=== PATIENT | female | born 1970 | race Caucasian/White ===

== ENCOUNTER 2024-03-12 12:00 | Emergency (ER) | payer MEDICARE, SELFPAY ==
--- NOTE | ~2024-03-12 | CT_ITS ---
EXAMINATION: CT CERVICAL SPINE WITHOUT CONTRAST CLINICAL INFORMATION: Acute on chronic neck pain. COMPARISON: None available. TECHNIQUE: Noncontrast computed tomography of the cervical spine was performed. This CT examination was performed using dose optimization techniques as appropriate, variously including the following: *Automated exposure control *Adjustment of mA and/or kV according to patient size (this includes techniques or standardized protocols for targeted exams where dose is matched to indication/reason for exam; i.e. extremities or head) *Use of iterative reconstruction technique DLP: 865 mGy-cm FINDINGS: The vertebral bodies and posterior elements demonstrate anatomic alignment. The neck is flexed. Vertebral body heights are preserved. There is mild degenerative disc disease at C5-6 and C6-7. There is no acute fracture. The atlantooccipital and C1/C2 articulations are intact. The prevertebral soft tissue is normal in appearance. Paraspinal soft tissue is normal in appearance. There is multilevel facet arthropathy. The thyroid gland is normal in appearance. The visualized lung apices are clear. CT/CT cervical spine wo IV con IMPRESSION: No acute osseous cervical spine abnormality. Mild cervical spondylosis as described. Fleischner guidelines were followed. Electronically signed by: Alfredo Nuñez DO 03/12/2024 03:01 PM EDT
--- NOTE | ~2024-03-12 | CT_ITS ---
EXAMINATION: CT HEAD WITHOUT CONTRAST CLINICAL INFORMATION: Headache. Hypertension. COMPARISON: None available. TECHNIQUE: Contiguous axial imaging was performed from the skull base to vertex without intravenous administration of contrast. This CT examination was performed using dose optimization techniques as appropriate, variously including the following: *Automated exposure control *Adjustment of mA and/or kV according to patient size (this includes techniques or standardized protocols for targeted exams where dose is matched to indication/reason for exam; i.e. extremities or head) *Use of iterative reconstruction technique DLP: 595 mGy-cm FINDINGS: There is no acute intracranial hemorrhage. There is no evidence of acute/subacute cerebral or cerebellar infarction. There is no midline shift or mass effect. There is no extra-axial fluid collection. The ventricles are normal in size. The orbits are symmetric and within normal limits. The visualized paranasal sinuses are clear. Mastoid air cells are clear. CT/CT head/brain wo IV con IMPRESSION: No acute intracranial abnormality. Electronically signed by: Alfredo Nuñez DO 03/12/2024 02:49 PM EDT
[2024-03-12 12:04] VITALS: BP 142/92; BP 154/97; PULSE 90; PULSE 96; RESP 18; TEMP 37; O2SAT 95; O2SAT 98; BMI 27.2
--- NOTE | 2024-03-12 12:12 | ED.GENADULT ---
HPI - General Adult General Chief complaint: Headache Stated complaint: MIGRAINE X2D,DIZZY,BLURRED VISION PER EMS Source: patient, EMS and RN notes reviewed Mode of arrival: EMS Limitations: no limitations History of Present Illness ED Provider: rosalee HPI narrative: Patient is a 54-year-old female with history of frequent, poorly controlled migraines presenting to the emergency department with complaint of migraine and high blood pressure readings at home. States she developed migraine Saturday night, also noted BP to be 160s/100s at that time. Presented to [facility] ED, medicated with Solu-medrol, droperidol, and Dilaudid at that time with good relief of symptoms. Was told to come back to the ED if symptoms returned. Symptoms returned yesterday, BP was again 160s/100s, so she returned to [facility]. Reports being in waiting room for 5+ hours, was seen and told to take Tylenol or ibuprofen and discharged home. She called the on-call for her PCP and was advised to return to an ED. She denies history of HTN, is not currently on blood pressure medications. Was previously on Sumatriptan for migraines but has been off x 3 months due to insurance issues. Reports associated blurred vision, nausea without vomiting, photophobia. States that she takes oxycodone for chronic neck pain but feels she has had an acute exacerbation of this chronic pain. Denies any weakness, numbness, tingling to upper extremities. Denies recent falls or other trauma. Had appointment scheduled with PCP for this afternoon to address blood pressures. MD complaint: migraine, htn Onset (ago): day(s) Location: head and neck Severity: severe Pain Consistency: colicky Relieving factors: medication Related Data Allergies Allergy/AdvReac Type Severity Reaction Status Date / Time codeine AdvReac Anxiety Verified 03/12/24 12:10 diphenhydramine AdvReac Anxiety Verified 03/12/24 12:10 [From Benadryl] hydrocodone AdvReac Anxiety Verified 03/12/24 12:10 morphine AdvReac Anxiety Verified 03/12/24 12:10 prochlorperazine AdvReac Anxiety Verified 03/12/24 12:10 [From Compazine] Review of Systems Review of Systems: As per HPI Yes all other systems are reviewed and are negative Constitutional: Constitutional: Reports as per HPI PMFSH Social History Social History Smoked in Last 30 Days: No Advance Directives: No Advance Directives Information Provided: Yes Do you have a plan to hurt others: No Plan Patient : No Physical Exam ED Vital Signs: Vital Signs - 24 hr 03/12/24 12:04 03/12/24 12:16 03/12/24 13:56 Temperature 98.6 F 98.6 F 97.7 F Pulse Rate 96 96 54 Respiratory Rate 18 18 14 Blood Pressure 154/97 H 154/97 H 125/76 Pulse Oximetry 95 95 97 Oxygen Delivery Method Room Air Room Air Room Air 03/12/24 16:19 03/12/24 17:51 03/12/24 18:48 Temperature 97.8 F 97.8 F 97.8 F Pulse Rate 66 64 64 Respiratory Rate 18 15 15 Blood Pressure 167/85 H 147/78 H 147/78 H Pulse Oximetry 99 94 94 Oxygen Delivery Method Room Air Room Air Room Air BMI result Body Mass Index 27.2 Vital signs have been reviewed and appear to be correct. Blood pressure elevated. Heart rate normal. Respiratory rate normal. Temperature normal. Oxygen saturation normal. Const General: cooperative, healthy appearing and no acute distress Orientation/consciousness: oriented to person, oriented to place, oriented to time and patient oriented x3 Limitations: no limitations HENMT Head: Yes normocephalic and Yes atraumatic Ears: external ears normal General nose exam: Normal external nose present Face and sinus: Yes face symmetric Mouth: oropharynx normal and moist mucous membranes Throat: Yes uvula midline Eyes Pupils: Equal, round and reactive pupils present Neck Neck: Yes normal visual inspection, Yes no meningeal signs and Yes supple Resp Effort & Inspection: normal respiratory effort and able to speak in complete sentences Auscultation: clear to auscultation bilaterally Cardio Rate: regular rate Rhythm: regular rhythm Heart sounds: S1 normal heart sound present and S2 normal heart sound present GI Palpation (GI): Soft to palpation and nontender Auscultation: normoactive bowel sounds General: Yes no CVA tenderness Back/Spine/Pelvis Back: no CVA tenderness Skin General skin exam: elasticity normal and turgor normal Neuro General: oriented to person, oriented to place, oriented to time, patient oriented x3, tone normal, moves all extremities, Normal light touch and pain sensation, no meningeal signs, no focal motor deficits, CN's II-XI intact bilaterally and deep tendon reflexes 2+ bilaterally Cranial nerves: Yes Equal, round and reactive pupils present Cognition (Neuro): normal cognition Motor exam (neuro): 5/5 motor strength present throughout Extrem General: Yes full ROM, Yes no pedal edema and Yes no calf tenderness Psych Mental Status: mental status grossly normal Affect: normal affect Thought process: Normal thought process present Medications Administered Discontinued Medications Generic Name Dose Route Start Last Admin Trade Name Freq PRN Reason Stop Dose Admin Droperidol 0.625 mg 03/12/24 12:31 03/12/24 12:57 Droperidol 5 Mg/2 Ml Vial IVPUSH 03/12/24 12:32 0.625 mg ONCE ONE Administration Hydromorphone HCl 1 mg 03/12/24 12:31 03/12/24 12:57 Hydromorphone Hcl 1 Mg/Ml Syringe IVPUSH 03/12/24 12:32 1 mg ONCE ONE Administration Protocol Hydromorphone HCl 1 mg 03/12/24 17:08 03/12/24 17:44 Hydromorphone Hcl 1 Mg/Ml Syringe IVPUSH 03/12/24 17:09 1 mg ONCE ONE Administration Protocol Sodium Chloride 1,000 mls @ 999 mls/hr 03/12/24 12:45 03/12/24 13:59 Ns IV 03/12/24 13:45 Infused .Q1H1M THOMAS Infusion Sodium Chloride 1,000 mls @ 999 mls/hr 03/12/24 17:15 03/12/24 17:44 Ns IV 03/12/24 18:15 999 mls/hr .Q1H1M THOMAS Administration Methylprednisolone Sodium Succinate 60 mg 03/12/24 12:31 03/12/24 12:58 Methylprednisolone Sod Succ 125 Mg/2 Ml Vial IVPUSH 03/12/24 12:32 60 mg ONCE ONE Administration Medical Decision Making Medical Decision Making MDM Narrative: Patient is a 54-year-old female with history of frequent, poorly controlled migraines presenting to the emergency department with complaint of migraine and high blood pressure readings at home. On exam patient is awake, A+Ox3, VS WNL, afebrile, normal neurological exam without focal deficits, physical exam findings as above. Given reported symptoms and physical exam findings, initial differential includes migraine, uncontrolled hypertension, tension headache. No red flag findings concerning for ICH/SAH, acute glaucoma, carotid artery dissection, CO poisoning, encephalitis, meningitis, preeclampsia, pseudotumor, temporal arteritis/giant cell arteritis. Given ongoing headaches with hypertension and worsening neck pain, CT head and neck obtained. Labs unremarkable, no significant electrolyte abnormalities. CT head notable for no acute abnormality, CT C-spine notable for mild spondylosis. My interpretation is in agreement with the radiologist's interpretation. Headache improved with medications and fluids given in the emergency department. Patient states that she feels able to be discharged home. Instructed patient to follow up with PCP regarding hypertension. Return precautions discussed at bedside. Patient verbalized understanding of and agreement with plan. Differential Diagnosis Differential Diagnoses: The differential diagnosis associated with the presentation includes As per [facility]. Admission/Observation Consideration of admission/observation: Escalation of care including admission/observation considered Patient would have been admitted to the hospital had their work up had any findings where hospital admission was appropriate and their clinical presentation warranted hospital admission. Lab Data [facility] Lab Attestation statement: I reviewed the patient's lab results. As per MDM. 03/12/24 12:44 03/12/24 12:44 Labs: Lab Results 03/12/24 Range/Units 12:44 WBC 5.4 (4.8-10.8) X10*3/uL RBC 4.61 (4.20-5.50) X10*6/uL Hgb 13.8 (12.0-16.0) g/dl Hct 40.0 (37.0-47.0) % MCV 86.8 (80.0-98.0) fL MCH 29.9 (27.0-33.0) pg MCHC 34.5 (31.0-35.0) g/dl RDW 13.4 (11.0-16.0) % Plt Count 238 (160-400) X10*3/uL MPV 10.4 (9.4-12.3) fL Immature Gran % (Auto) 0.4 (0.0-0.4) % Neut % (Auto) 47.8 (45-73) % Lymph % (Auto) 38.5 (20-40) % Schoolcraft % (Auto) 10.8 (2-11) % Eos % (Auto) 1.9 (0-4) % Baso % (Auto) 0.6 (0-2) % Lymph # (Auto) 2.1 (1.2-4.9) X10*3/uL Schoolcraft # (Auto) 0.6 (0.1-1.2) X10*3/uL Eos # (Auto) 0.1 (0.0-0.4) X10*3/uL Baso # (Auto) 0.0 (0.0-0.2) X10*3/uL Abs Immat Gran (auto) 0.02 (0.00-0.03) X10*3/uL Absolute Neuts (auto) 2.6 (2.0-8.3) x10*3/uL Absolute Nucleated RBC 0.000 (0.0-0.012) X10*3/uL Nucleated RBC % (auto) 0.0 (0.0-0.2) /100WBC Sodium 142 (135-145) mmol/L Potassium 3.9 (3.3-5.1) mmol/L Chloride 109 H (96-108) mmol/L Carbon Dioxide 25 (22-29) mmol/L Anion Gap 12 (12-20) BUN 9 (9-16) mg/dL Creatinine 0.66 (0.5-1.4) mg/dL Estim Creat Clear Calc 86.2 Estimated GFR > 60 Random Glucose 100 (60-115) mg/dL Calcium 9.7 (8.4-10.2) mg/dL Magnesium 2.0 (1.6-2.6) mg/dL Total Bilirubin 0.4 (0.0-1.0) mg/dL AST 13 (5-31) U/L ALT 10 (0-31) U/L Alkaline Phosphatase 59 (39-117) U/L Total Protein 6.5 (6.5-8.0) g/dL Albumin 4.0 (3.5-5.0) g/dL Beta HCG, Quant 4 mIU/mL Independent Interpretation I performed an independent interpretation of an: CT Scan Interpretation: CT head notable for no acute abnormality, CT C-spine notable for mild spondylosis. Radiology Impression Discussion of test interpretation with radiology: I have reviewed the radiologist's reading. Radiologist Impression: FINDINGS: There is no acute intracranial hemorrhage. There is no evidence of acute/subacute cerebral or cerebellar infarction. There is no midline shift or mass effect. There is no extra-axial fluid collection. The ventricles are normal in size. The orbits are symmetric and within normal limits. The visualized paranasal sinuses are clear. Mastoid air cells are clear. CT/CT head/brain wo IV con IMPRESSION: No acute intracranial abnormality. CT/CT cervical spine wo IV con IMPRESSION: No acute osseous cervical spine abnormality. Mild cervical spondylosis as described. Fleischner guidelines were followed. External Record Review External record reviewed: Inpatient record, Office record and Outpatient record Critical Care Time Critical Care Time Critical Care Time: Yes Total Critical Care Time: 33 Attestation: I have personally provided critical care time exclusive of time spent on separately billable procedures. Time includes review of lab data, radiology results, discussion with consultants, and monitoring for potential decompensation. Intervention performed as documented. Discharge Plan Discharge Clinical Impression: Migraine, HBP (high blood pressure) Patient Disposition: Home, Self-Care Instructions: Migraine Headache (ED), Hypertension (ED) Additional Instructions: You have been evaluated in the emergency department today for headache. Your evaluation did not show evidence of medical conditions requiring emergent intervention at this time, and your pain improved with medication in the ED. Follow up with your primary care provider regarding your elevated blood pressure readings. We recommend you take 600 mg ibuprofen every 6 hours or Tylenol 650 mg every 6 hours as needed for pain. If needed, you can alternate these medications so that you take 1 medication every 3 hours. For instance, at noon take ibuprofen, then at 3:00 p.m. take Tylenol, then at 6:00 p.m. take ibuprofen. Please follow-up with your primary care provider within 2 days. Return to the emergency department if you experience worsening or uncontrolled pain, vision changes, recurrent vomiting, difficulty with normal activities, abnormal behavior, difficulty walking, numbness, weakness, or any other concerning symptoms. EXAMINATION: CT HEAD WITHOUT CONTRAST CLINICAL INFORMATION: Headache. Hypertension. COMPARISON: None available. TECHNIQUE: Contiguous axial imaging was performed from the skull base to vertex without intravenous administration of contrast. This CT examination was performed using dose optimization techniques as appropriate, variously including the following: *Automated exposure control *Adjustment of mA and/or kV according to patient size (this includes techniques or standardized protocols for targeted exams where dose is matched to indication/reason for exam; i.e. extremities or head) *Use of iterative reconstruction technique DLP: 595 mGy-cm FINDINGS: There is no acute intracranial hemorrhage. There is no evidence of acute/subacute cerebral or cerebellar infarction. There is no midline shift or mass effect. There is no extra-axial fluid collection. The ventricles are normal in size. The orbits are symmetric and within normal limits. The visualized paranasal sinuses are clear. Mastoid air cells are clear. CT/CT head/brain wo IV con IMPRESSION: No acute intracranial abnormality. FINDINGS: The vertebral bodies and posterior elements demonstrate anatomic alignment. The neck is flexed. Vertebral body heights are preserved. There is mild degenerative disc disease at C5-6 and C6-7. There is no acute fracture. The atlantooccipital and C1/C2 articulations are intact. The prevertebral soft tissue is normal in appearance. Paraspinal soft tissue is normal in appearance. There is multilevel facet arthropathy. The thyroid gland is normal in appearance. The visualized lung apices are clear. CT/CT cervical spine wo IV con IMPRESSION: No acute osseous cervical spine abnormality. Mild cervical spondylosis as described. Fleischner guidelines were followed. Interventions: ED Discharge Assessment Last Done: 03/12/24 18:48 Discharge Date/Time: 03/12/24 18:48 Print Language: Barbadian
[2024-03-12 12:16] VITALS: BP 154/97; PULSE 96; RESP 18; TEMP 37; O2SAT 95
--- OUTSIDE RECORDS SUMMARY | 2024-03-12 12:48 | XMS_ITS | Continuity of Care Document ---
Author Organization [facility] Address [address] [place], [place] [address], [address] [place] [address]- Care Team Providers Care Unit Aid Name Role Phone Elvia ALTERATION INSPECTOR, Rima Iyer Primary Care Physici an Encounter [facility] [place] Date(s): 10/03/23 - 11/02/23 [facility] [address] [place] [address] Drive [address] [place], [place] [address] Allergies, Adverse Reactions, Alerts Substance Reaction Severity Status naproxen rash Active Compazine psychosis Active Vicodin rash Active Benadryl psychosis Active morphine anaphalacsis Active sulfa drugs unknown Active Phenergan Dysphoric Reaction Active Reglan anxiety/ tremors Active Immunizations Given and Recorded Vaccine Date Status Refusal Reason Pneumococcal Vaccine (oldterm) 1 06/19/07 Given influenza virus vaccine, inactivated 2 06/19/07 Gi shania 1Result Comment: Lot: [id number] Exp: May 15 Pt rec'd vaccine information sheet prior to receiving vaccine 2Result Comment: Lot: [id number] Exp: Dec 13 Pt rec'd vaccine information sheet prior to receiving vaccine Medications amiTRIPTYLINE = 25 mg, By Mouth, Daily at bedtime, 0 Refills, Maintenance, 07/29/17 13:46:06 Start Date: 07/29/17 Status: Ordered Biotin By Mouth, Daily, 0 Refills, Maintenance, 09/25/16 15:19:57 Start Date: 09/25/16 Status: Ordered busPIRone 10 mg oral tablet Refills 0, Maintenance, 10/22/23 13:37:00 EDT, Partial fill upon patient request if the prescription is for a schedule II opioid drug. Start Date: 10/22/23 Status: Ordered cloNIDine 0.1 mg oral tablet 0.1 mg, 1, tablet, By Mouth, 2 times a day, PRN, Refills 0, Maintenance, Anxiety, 02/26/17 15:48:32EDT Start Date: 02/26/17 Status: Ordered diazepam 2 mg oral tablet 2 mg, 1, tablet, By Mouth, 3 times a day, Refills 0, Maintenance, 06/04/17 2:54:18 Start Date: 06/04/17 Status: Ordered Doc-Q-Lax 50 mg-8.6 mg oral tablet 2 tablet, By Mouth, Daily at bedtime, 0 Refills, Maintenance, 08/23/17 16:11:32 Start Date: 08/23/17 Status: Ordered gabapentin 400 mg oral capsule 400 mg, 1, capsule, By Mouth, 3 times a day, # 90 capsule, Refills 3, Tot. Refills 3, Maintenance, 10/29/16 17:54:51, Route to Pharmacy Electronically, [id number], [facility]/pharmacy #1972 Start Date: 10/29/16 Stop Date: 02/26/17 Status: Ordered Imitrex Statdose Refill 4 mg/0.5 mL subcutaneous solution 0.5 mL = 4 mg, Subcutaneous Injection, Once, PRN as needed for migraine headache, may repeat once in 1 hour if needed, # 1 kit, 0 Refills, Maintenance, 12/31/18 15:52:31 EDT, Solution Start Date: 12/31/18 Status: Ordered lithium 150 mg oral capsule 1 capsule = 150 mg, By Mouth, Daily in AM, 0 Refills, Maintenance, 06/04/17 2:55:37 Start Date: 06/04/17 Status: Ordered lithium 600 mg oral capsule 1 capsule = 600 mg, By Mouth, Daily at bedtime, 0 Refills, Maintenance, 12/31/18 15:49:05 EDT Start Date: 12/31/18 Status: Ordered ondansetron 4 mg oral tablet, disintegrating 1 tablet = 4 mg, By Mouth, Every 8 hours, PRN as needed for nausea/vomiting, # 10 tablet, 0 Refills, Maintenance, 08/10/23 13:11:00 EST, DIS Tablet, [id number], Partial fill upon patient request if the prescription is for a schedule I... Start Date: 08/10/23 Status: Ordered oxyCODONE 10 mg oral tablet 0 Refills, Maintenance, 10/22/23 13:38:00 EDT, Partial fill upon patient request if the prescription is for a schedule II opioid drug. Start Date: 10/22/23 Status: Ordered oxyCODONE 10 mg oral tablet 1 tablet = 10 mg, By Mouth, Every 6 hours, PRN as needed for pain, 0 Refills, Maintenance, 01/21/1714:51:51, Tablet Start Date: 01/21/17 Status: Ordered pantoprazole 40 mg oral delayed release tablet 0 Refills, Maintenance, 10/22/23 13:37:00 EDT Start Date: 10/22/23 Status: Ordered propranolol 20 mg oral tablet Refills 0, Maintenance, 10/22/23 13:37:00 EDT, Partial fill upon patient request if the prescription is for a schedule II opioid drug. Start Date: 10/22/23 Status: Ordered SEROquel 100 mg oral tablet 100 mg, 1, tablet, By Mouth, 2 times a day, Refills 0, Maintenance, 10/22/23 13:39:00 EDT, Partial fill upon patient request if the prescription is for a schedule II opioid drug. Start Date: 10/22/23 Status: Ordered Tigan 300 mg oral capsule 1 capsule = 300 mg, By Mouth, 3 times a day, 0 Refills, Maintenance, 07/31/17 13:23:02 Start Date: 07/31/17 Status: Ordered ZyrTEC 10 mg oral tablet 1 tablet = 10 mg, By Mouth, Daily at bedtime, # 30 tablet, 0 Refills, Maintenance, 12/31/18 15:49:47 EDT, Tablet Start Date: 12/31/18 Status: Ordered Problem List Condition Confirmation Course Effective Dates Status [facility] atus Informant Abnormal findings on diagnostic imaging of breast Confirmed Active Social History Social History Type Response Smoking Status Former smoker, quit more than 30 days ago entered on: 06/12/22 Sex Patient Care team information Care Team Personnel Name: Elvia GREER, Rima Iyer Position: [facility] Outreach Member Role: PCP Address: Address: [address] [place] [address], [place] [address]- Name: Dominic GALO, Opal Brandon Position: [facility] Onco RN Member Role: Primary Care Nurse Care Team Related Persons Name: JULIANO WATKINS Address: home [address] [place] [address] Name: JASSI WATKINS Address: home [address] [place] [address] Name: BAY KELLY Address: [address] [place], [place] Name: BAY KELLY Address: [address] [address]
--- OUTSIDE RECORDS SUMMARY | 2024-03-12 12:48 | XMS_ITS | Continuity of Care Document ---
Author Organization [facility] Address [address] [place] [address] ve [address] [place] [address]- Care Team Providers Care Parimutuel Clerk Name Role Phone Sadie Rucker MD Primary Care Physician [place] [facility] [place] 09/16/19 - 09/26/19 [facility] [address] [place] [address]- [facility] Attending Physician: Zhou Fernandez Admitting Physician: AdmtrZhou Referring Physician: Admtr, Ar8 Allergies, Adverse Reactions, Alerts Substance Reaction Severity Status naproxen rash Active morphine anaphalacsis Active sulfa drugs unknown Active Phenergan Dysphoric Reaction Active Compazine psychosis Active Vicodin rash Active Benadryl psychosis Active Reglan anxiety/ tremors Active BuSpar unknown Active Immunizations Given and Recorded Vaccine Date Status Refusal Reason Pneumococcal Vaccine (oldterm) 1 06/19/07 Given influenza virus vaccine, inactivated 2 06/19/07 Gi shania 1Result Comment: Lot: [id number] Exp: May 15 Pt rec'd vaccine information sheet prior to receiving vaccine 2Result Comment: Lot: [id number] Exp: Dec 13 Pt rec'd vaccine information sheet prior to receiving vaccine Medications amiTRIPTYLINE = 25 mg, By Mouth, Daily at bedtime, 0 Refills, Maintenance, 07/29/17 13:46:06 Start Date: 07/29/17 Status: Ordered Biotin By Mouth, Daily, 0 Refills, Maintenance, 09/25/16 15:19:57 Start Date: 09/25/16 Status: Ordered cloNIDine 0.1 mg oral tablet [...] Maintenance, 10/29/16 17:54:51, Route to Pharmacy Electronically, [id number], [facility]/pharmacy #1972 Start Date: 10/29/16 Stop Date: 02/26/17 [...] 15:49:05 EDT Start Date: 12/31/18 Status: Ordered oxyCODONE 10 mg oral tablet 1 tablet = 10 mg, By Mouth, Every 6 hours, PRN as needed for pain, 0 Refills, Maintenance, 01/21/1714:51:51, Tablet Start Date: 01/21/17 Status: Ordered Tigan 300 mg oral capsule 1 capsule = 300 mg, By Mouth, 3 times a day, 0 Refills, Maintenance, 07/31/17 13:23:02 Start Date: 07/31/17 Status: Ordered ZyrTEC 10 mg oral tablet 1 tablet = 10 mg, By Mouth, Daily at bedtime, # 30 tablet, 0 Refills, Maintenance, 12/31/18 15:49:47 EDT, Tablet Start Date: 12/31/18 Status: Ordered Problem List Condition Effective Dates Status Health Status Inform ant Abnormal findings on diagnos tic imaging of breast(Confirmed) Active Social History Social History Type Response Smoking Status Former smoker, quit more than 30 days ago; Other: quit 12/2018; entered on: 01/21/19 Sex
--- OUTSIDE RECORDS SUMMARY | 2024-03-12 12:48 | XMS_ITS | Continuity of Care Document ---
Author Organization [facility] Address [address] [place] [address] [address] [place] [address]- Care Team Providers Care Barrel Cleaner Name Role Phone Sadie Rucker MD Primary Care Physician [phone] Encounter [facility] [place] Date(s): 09/02/19 - 10/16/19 [facility] [address] [place] [address]- [facility] Attending Physician: Moo Hogue MD Referring Physician: Sadie Rucker MD Allergies, Adverse Reactions, Alerts Substance Reaction Severity [...] prior to receiving vaccine 2Result Comment: Lot: [id number] Exp: Dec 13 Pt rec'd vaccine information [...] Maintenance, 10/29/16 17:54:51, Route to Pharmacy Electronically, [id number], [facility]/pharmacy #1972 Start Date: 10/29/16 Stop Date: [...]
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
--- OUTSIDE RECORDS SUMMARY | 2024-03-12 12:48 | XMS_ITS | Continuity of Care Document ---
Author Organization [facility] Address [address], [address] [place] [address]- Care Team Providers Care Signal Maintainer Helper Name Role Phone Elvia SOCIAL SCIENCE ANALYST, Rima Iyer Primary Care Physici an Encounter [facility] Date(s): 05/15/23 - 06/14/23 [facility] [address] [place] [address]- Allergies, Adverse Reactions, Alerts Substance Reaction Severity Status naproxen rash Active sulfa drugs unknown Active Compazine psychosis Active Vicodin rash Active Benadryl psychosis Active morphine anaphalacsis Active Phenergan Dysphoric Reaction Active Reglan anxiety/ tremors Active BuSpar unknown Active Immunizations Given and Recorded Vaccine Date Status Refusal Reason Pneumococcal Vaccine (oldterm) 1 06/19/07 Given influenza virus vaccine, inactivated 2 06/19/07 Gi shania 1Result Comment: Lot: [id number] Exp: May 15 Pt rec'd vaccine information sheet prior to receiving vaccine 2Result Comment: Lot: [id number] Exp: Dec 13 Pt rec'd vaccine information [...] Maintenance, 10/29/16 17:54:51, Route to Pharmacy Electronically, [id number], [facility]/pharmacy #1972 Start Date: 10/29/16 Stop Date: [...] List Condition Confirmation Course Effective Dates Status [facility] St atus Informant Abnormal findings on diagnostic imaging of breast Confirmed Active Social History Social History Type Response Smoking Status Former smoker, quit more than 30 days ago entered on: 06/12/22 Sex Patient Care team information Care Team Personnel Name: Elvia GREER, Rima Iyer Position: [facility] Outreach Member Role: PCP Address: Address: [address] [place] [id number] Name: Carlos GALO, Opal Brandon Position: [facility] Onco RN Member Role: Primary Care Nurse Care Team Related Persons Name: JULIANO WATKINS Address: home [address] [place] [address] Name: JASSI WATKINS Name: BAY KELLY Address: home [address] [place] [address] Name: BAY KELLY Address: home [address] [place] [address]
--- OUTSIDE RECORDS SUMMARY | 2024-03-12 12:48 | XMS_ITS | Continuity of Care Document ---
Author Organization [facility] Address [address] [place] [address]- Care Team Providers Care Shear Grinder Operator Helper Name Role Phone Elvia GREER, Rima Iyer Primary Care Physici an Encounter [facility] Date(s): 10/11/23 - 11/10/23 [facility] [address] [place] [address]- [place] Allergies, Adverse Reactions, Alerts Substance Reaction Severity Status naproxen rash Active morphine anaphalacsis Active Benadryl psychosis Active Reglan anxiety/ tremors Active sulfa drugs unknown Active Phenergan Dysphoric Reaction Active Compazine psychosis Active Vicodin rash Active Immunizations Given and Recorded Vaccine Date Status Refusal Reason Pneumococcal Vaccine (oldterm) 1 06/19/07 Given influenza virus vaccine, inactivated 2 06/19/07 Gi shania 1Result Comment: Lot: [id number] Exp: May 15 Pt rec'd vaccine information sheet prior to receiving vaccine 2Result Comment: Lot: [id number] Exp: Dec 13 Pt rec'd vaccine information [...] Maintenance, 10/29/16 17:54:51, Route to Pharmacy Electronically, [id number], [facility]/pharmacy #1972 Start Date: 10/29/16 Stop Date: 02/26/17 [...] Refills, Maintenance, 08/10/23 13:11:00 EST, DIS Tablet, [facility] #[id number], Partial fill upon patient request if the [...] List Condition Confirmation Course Effective Dates Status [facility] St atus Informant Abnormal findings on diagnostic imaging of breast Confirmed Active Social History Social History Type Response Smoking Status Former smoker, quit more than 30 days ago entered on: 06/12/22 Sex Patient Care team information Care Team Personnel Name: Rima Gan NP Position: [facility] Outreach Member Role: PCP Address: Address: [address] [place] [address]- Name: Dominic GALO, Opal Brandon Position: [facility] Onco RN Member Role: Primary Care Nurse Care Team Related Persons Name: JULIANO WATKINS Address: home [address] [place] [address] [place] [address] Name: JASSI WATKINS Address: home [address] [place] [address] Name: BAY KELLY Address: home [address] [place] [address] Name: BAY KELLY Address: [place] [address] [place] [address]
--- OUTSIDE RECORDS SUMMARY | 2024-03-12 12:49 | XMS_ITS | Continuity of Care Document ---
Author Organization [facility] Address [address] [place] [address] [address], [address] [place] [address]- Care Team Providers Care Healthcare Business Analyst Name Role Phone Elvia GREER, Rima Iyer Primary Care Physici an En[place] [facility] Date(s): 10/22/23 - 10/29/23 [facility] [address] [place] [address] Drive [address] [place] [address]- Attending Physician: Chetan Velazquez MD Referring Physician: Rima Gan NP Allergies, Adverse Reactions, Alerts Substance Reaction Severity Status naproxen rash Active morphine anaphalacsis Active sulfa drugs unknown Active Phenergan Dysphoric Reaction Active Compazine psychosis Active Vicodin rash Active Benadryl psychosis Active Reglan anxiety/ tremors Active Immunizations Given and Recorded Vaccine Date Status Refusal Reason Pneumococcal Vaccine (oldterm) 1 06/19/07 Given influenza virus vaccine, inactivated 2 06/19/07 Gi shania 1Result Comment: Lot: [id number] Exp: May 15 Pt rec'd vaccine information sheet prior to receiving vaccine 2Result Comment: Lot: [id number] Exp: Dec 13 Pt rec'd vaccine information [...] a schedule II opioid drug. Start Date: 4/16/24 Status: Ordered cloNIDine 0.1 mg oral tablet [...] Maintenance, 10/29/16 17:54:51, Route to Pharmacy Electronically, [id number], [facility]/pharmacy #1972 Start Date: 10/29/16 Stop [...] Refills, Maintenance, 08/10/23 13:11:00 EST, DIS Tablet, [facility] #[id number], Partial fill upon patient request if the [...] on diagnostic imaging of breast Confirmed Active Vital Signs Most recent to oldest [Reference Range]: 1 Height 158 cm (10/22/23 1:29 PM) Weight 61.2 kg (10/22/23 1:29 PM) Body Mass Index [18.5-24.99 kg/m2] 24.52 kg/m2 (10/22/23 1:29 PM) Social History Social History Type Response Smoking Status Former smoker, quit more than 30 days ago entered on: 06/12/22 Sex Patient Care team information Care Team Personnel Name: Elvia GREER, Rima Iyer Position: [facility] Outreach Member Role: PCP Address: Address: [address] [place] [address]- Name: Dominic GALO, Opal Brandon Position: [facility] Onco RN Member Role: Primary Care Nurse Care Team Related Persons Name: JULIANO WATKINS Address: home [address] Name: JASSI WATKINS Address: home [address] [place], [place] Name: BAY KELLY Address: home [address] [place], [place] Name: BAY KELLY Address: home [address] [place] [address]
--- OUTSIDE RECORDS SUMMARY | 2024-03-12 12:49 | XMS_ITS | Continuity of Care Document ---
Author Organization [facility] ter Address [address] [place] [address]- Care Team Providers Care Vaccine Specialist Name Role Phone Alka TENORIO, Sadie Primary Care Physician Encounter [facility] Date(s): 06/25/19 - 06/25/[address] [address] [facility] Attending Physician: Elvia GREER, Rima Iyer Allergies, Adverse Reactions, Alerts Substance Reaction Severity [...] prior to receiving vaccine 2Result Comment: Lot: [id number] Exp: Dec 13 Pt rec'd vaccine information [...] Maintenance, 10/29/16 17:54:51, Route to Pharmacy Electronically, [id number], [facility]/pharmacy #1972 Start Date: 10/29/16 Stop [...]
--- OUTSIDE RECORDS SUMMARY | 2024-03-12 12:49 | XMS_ITS | Continuity of Care Document ---
Author Organization [facility] Address [address] [place] [address]- Care Team Providers Care Section Chief Name Role Phone Elvia GREER, Rima Iyer Primary Care Physici an [place] [facility] [place] 10/14/23 - 12/11/23 [facility] [address] [place] [address]- Attending Physician: Desmond Talavera MD Admitting Physician: Desmond Talavera MD Referring Physician: Rima aGn NP Allergies, Adverse Reactions, Alerts Substance Reaction Severity Status naproxen rash Active Benadryl psychosis Active morphine anaphalacsis Active sulfa drugs unknown Active Phenergan Dysphoric Reaction Active Compazine psychosis Active Vicodin rash Active Reglan anxiety/ tremors Active Immunizations Given and Recorded Vaccine Date Status Refusal Reason Pneumococcal Vaccine (oldterm) 1 06/19/07 Given influenza virus vaccine, inactivated 2 06/19/07 Gi shania 1Result Comment: Lot: [id number] Exp: May 15 Pt rec'd vaccine information sheet prior to receiving vaccine 2Result Comment: Lot: [id number] Exp: Dec 13 Pt rec'd vaccine information [...] Maintenance, 10/29/16 17:54:51, Route to Pharmacy Electronically, [id number], [facility]/pharmacy #1972 Start Date: 10/29/16 Stop Date: 02/26/17 Status: Ordered Imitrex Statdose Refill 4 mg/0.5 mL subcutaneous solution 0.5 mL = 4 mg, Subcutaneous Injection, Once, PRN as needed for migraine headache, may repeat once in 1 hour if needed, # 1 kit, 0 Refills, Maintenance, 12/31/18 15:52:31 EDT, Solution Start Date: 12/31/18 Status: Ordered lamotrigine 25 mg oral tablet Refills 0, Maintenance, 11/12/23 12:38:00 EDT, Partial fill upon patient request if the prescription is for a schedule II opioid drug. Start Date: 11/12/23 Status: Ordered lithium 150 mg oral capsule [...] Refills, Maintenance, 08/10/23 13:11:00 EST, DIS Tablet, [facility] #[id number], Partial fill upon patient request if the [...] 13:37:00 EDT Start Date: 10/22/23 Status: Ordered promethazine 12.5 mg oral tablet 1 tablet = 12.5 mg, By Mouth, Every 4 hours, PRN for nausea/vomiting, # 180 tablet, 1 Refills, Maintenance, 11/12/23 13:00:00 EDT, Tablet, [facility] #[id number], Partial fill upon patient request if the prescription is for a schedule II opioid d... Start Date: 11/12/23 Status: Ordered propranolol 20 mg oral tablet [...] Personnel Name: Elvia GREER, Rima Iyer Position: [facility] Outreach Member Role: PCP Address: Address: [address] [place] [address] Name: Dominic GALO, Opal Brandon Position: [facility] Onco RN Member Role: Primary Care Nurse Care Team Related Persons Name: JULIANO WATKINS Address: [address] Name: JASSI WATKINS Address: home [address] [place], [place] Name: BAY KELLY Address: home [address] [place], [place] Name: BAY KELLY Address: home [address] [place], [place]
--- OUTSIDE RECORDS SUMMARY | 2024-03-12 12:49 | XMS_ITS | Continuity of Care Document ---
Author Organization [facility] Address [address] [place], [place] [address], [address] [place] [address]- Care Team Providers Care Tank Truck Loader Name Role Phone Elvia TREE DRILLER, Rima Iyer Primary Care Physici an Encounter [facility] ACCT R [id number] Date(s): 10/22/23 - 11/21/23 [facility] [address] [place] [address] Drive [address] [place] [address]- Attending Physician: Zhou Fernandez Admitting Physician: Admtr, [id number] Referring Physician: Admtr, Ar8 Allergies, Adverse Reactions, [...] prior to receiving vaccine 2Result Comment: Lot: [id number] Exp: Dec 13 Pt rec'd vaccine information [...] Maintenance, 10/29/16 17:54:51, Route to Pharmacy Electronically, [id number], [facility]/pharmacy #1972 Start Date: 10/29/16 Stop Date: [...] Refills, Maintenance, 08/10/23 13:11:00 EST, DIS Tablet, [facility] #[id number], Partial fill upon patient request if the [...] 1 Refills, Maintenance, 11/12/23 13:00:00 EDT, Tablet, [facility] #[id number], Partial fill upon patient request if the [...] Personnel Name: Elvia GREER, Rima Iyer Position: [facility] Outreach Member Role: PCP Address: Address: [address] [place] [id number] Name: Dominic GALO, Opal Brandon Position: [facility] Onco RN Member Role: Primary Care Nurse Care Team Related Persons Name: JULIANO WATKINS Address: home [address] [place] [address] Name: JASSI WATKINS Address: home [address] [place], [place] Name: BAY KELLY Address: home [address] [place], [place] Name: BAY KELLY Address: home [address] [place], [place]
--- OUTSIDE RECORDS SUMMARY | 2024-03-12 12:49 | XMS_ITS | Continuity of Care Document ---
Author Organization [facility] Address [address] [place] [address]- Care Team Providers Care Porter Bath Name Role Phone Elvia GREER, Rima Iyer Primary Care Physici an [place] [facility] Date[place]s): 11/12/23 - 12/12/23 [facility] [address] [place] [address]- Attending Physician: Zhou Fernandez Admitting Physician: Zhou Fernandez Referring Physician: Zhou Fernandez Allergies, Adverse Reactions, Alerts Substance Reaction Severity [...] prior to receiving vaccine 2Result Comment: Lot: [id number] Exp: Dec 13 Pt rec'd vaccine information [...] Maintenance, 10/29/16 17:54:51, Route to Pharmacy Electronically, [id number], [facility]/pharmacy #1972 Start Date: 10/29/16 Stop Date: [...] Refills, Maintenance, 08/10/23 13:11:00 EST, DIS Tablet, [facility] #[id number], Partial fill upon patient request if the [...] 1 Refills, Maintenance, 11/12/23 13:00:00 EDT, Tablet, [facility] #[id number], Partial fill upon patient request if the [...] 30 days ago entered on: 06/12/22 Sex Laboratory * Event Display: Non BH Lab Results Authored Date: * Event Display: Non BH Lab Results Authored Date: Patient Care team information Care Team Personnel Name: Elvia GREER, Rima Iyer Position: [facility] Outreach Member Role: PCP Address: Address: [address] [place] [address]- Name: Dominic GALO, Opal Brandon Position: [facility] Onco RN Member Role: Primary Care Nurse Care Team Related Persons Name: JULIANO WATKINS Address: home [address] [place] [address] Name: JASSI WATKINS Address: home [address] [place], [place] Name: BAY KELLY Address: home [address] [place], [place] Name: BAY KELLY Address: home [address] [place], [place]
--- OUTSIDE RECORDS SUMMARY | 2024-03-12 12:49 | XMS_ITS | Continuity of Care Document ---
Author Organization [facility] Address [address] [place] [address]- Care Team Providers Care Inspector Hairspring Name Role Phone Elvia GREER, Rima Iyer Primary Care Physici an [place] [facility] [place](s): 11/22/23 - 12/22/23 [facility] [address] [place] [address]- [place] Allergies, Adverse Reactions, Alerts Substance Reaction [...] prior to receiving vaccine 2Result Comment: Lot: [id number] Exp: Dec 13 Pt rec'd vaccine information [...] Maintenance, 10/29/16 17:54:51, Route to Pharmacy Electronically, [id number], [facility]/pharmacy #1972 Start Date: 10/29/16 Stop Date: [...] Refills, Maintenance, 08/10/23 13:11:00 EST, DIS Tablet, [facility] #[id number], Partial fill upon patient request if the [...] 1 Refills, Maintenance, 11/12/23 13:00:00 EDT, Tablet, [facility] #[id number], Partial fill upon patient request if the [...] Personnel Name: Elvia GREER, Rima Iyer Position: [facility] Outreach Member Role: PCP Address: Address: [address] [place] [address]- Name: Dominic GALO, Opal Brandon Position: [facility] Onco RN Member Role: Primary Care Nurse Care Team Related Persons Name: JULIANO WATKINS Address: [address] Name: JASSI WATKINS Address: home [address] [place], [place] Name: BAY KELLY Address: home [address] [place], [place] Name: BAY KELLY Address: home [address] [place], [place]
--- OUTSIDE RECORDS SUMMARY | 2024-03-12 12:49 | XMS_ITS | Continuity of Care Document ---
Author Organization [facility] Address [address] [place] [id number]- Care Team Providers Care Thread Drawer Name Role Phone Elvia GREER, Rima Iyer Primary Care Physici an Encounter [facility] [place] Date(s): 01/03/24 - 02/02/24 [facility] [address] [place] [id number] [place] Allergies, Adverse Reactions, Alerts Substance Reaction Severity Status naproxen rash Active morphine anaphalacsis Active Vicodin rash Active Benadryl psychosis Active sulfa drugs unknown Active Phenergan Dysphoric Reaction Active Compazine psychosis Active Reglan anxiety/ tremors Active Immunizations Given and Recorded Vaccine Date Status Refusal Reason Pneumococcal Vaccine (oldterm) 1 06/19/07 Given influenza virus vaccine, inactivated 2 06/19/07 [facility] 1Result Comment: Lot: [id number] Exp: May 15 Pt rec'd vaccine information sheet prior to receiving vaccine 2Result Comment: Lot: [id number] Exp: Dec 13 Pt rec'd vaccine information [...] Maintenance, 10/29/16 17:54:51, Route to Pharmacy Electronically, [id number], [facility]/pharmacy #[id number] Start Date: 10/29/16 Stop Date: 02/26/17 [...] Refills, Maintenance, 08/10/23 13:11:00 EST, DIS Tablet, [facility] #[id number], Partial fill upon patient request if the [...] 1 Refills, Maintenance, 11/12/23 13:00:00 EDT, Tablet, [facility] #[id number], Partial fill upon patient request if the [...] Personnel Name: Elvia GREER, Rima Iyer Position: [facility] Outreach Member Role: PCP Address: Address: [address] [place] [id number]- Name: Dominic GALO, Opal Brandon Position: [facility] Onco RN Member Role: Primary Care Nurse Care Team Related Persons Name: JULIANO WATKINS Address: home [address] [place] [address] Name: JASSI WATKINS Address: home [address], [place] Name: BAY KELLY Address: home [address], [place] Name: BAY KELLY Address: home [address], [place]
[2024-03-12] MEDS: droPERidol 5 MG/2 ML VIAL 0.625 MG IVPUSH (12:57)
[2024-03-12] MEDS: HYDROmorphone HCl 1 MG/ML SYRINGE IVPUSH ×2 (12:57→17:44)
[2024-03-12] MEDS: methylPREDNISolone Sod Succ 125 MG/2 ML VIAL 60 MG IVPUSH (12:58)
[2024-03-12] MEDS: 0.9 % Sodium Chloride 1,000 ML 999 ML IV ×2 (12:58→17:44)
[2024-03-12 13:06] LABS: MANUAL DIFF FLAG NO
[2024-03-12 13:07] LABS: Basophils Percent Auto 0.6 % (0-2); Eosinophils Absolute Auto 0.1 X10*3/uL (0.0-0.4); Eosinophils Percent Auto 1.9 % (0-4); Hemoglobin 13.8 g/dl (12.0-16.0); Imm Gran Abs Auto 0.02 X10*3/uL (0.00-0.03); Imm Gran Pct Auto 0.4 % (0.0-0.4); Lymphocytes Absolute Auto 2.1 X10*3/uL (1.2-4.9); Lymphocytes Percent Auto 38.5 % (20-40); Mean Corpuscular HGB Conc 34.5 g/dl (31.0-35.0); Mean Corpuscular Hemoglobin 29.9 pg (27.0-33.0); Mean Corpuscular Volume 86.8 fL (80.0-98.0); Mean Platelet Volume 10.4 fL (9.4-12.3); Monocytes Absolute Auto 0.6 X10*3/uL (0.1-1.2); Monocytes Percent Auto 10.8 % (2-11); Neutrophils Absolute Auto 2.6 x10*3/uL (2.0-8.3); Neutrophils Percent Auto 47.8 % (45-73); Platelet Count 238 X10*3/uL (160-400); Red Blood Count 4.61 X10*6/uL (4.20-5.50); Red Cell Distribution Width 13.4 % (11.0-16.0); White Blood Count 5.4 X10*3/uL (4.8-10.8)
[2024-03-12 13:34] LABS: Alanine Aminotransferase 10 U/L (0-31); Alkaline Phosphatase 59 U/L (39-117); Anion Gap 12 (12-20); Aspartate Amino Transferase 13 U/L (5-31); Bilirubin Total 0.4 mg/dL (0.0-1.0); Blood Urea Nitrogen 9 mg/dL (9-16); Calcium 9.7 mg/dL (8.4-10.2); Carbon Dioxide 25 mmol/L (22-29); Chloride 109 mmol/L (96-108); Creatinine Clr Calc Pharmacy 86.2; Estimated Glomerular Filt Rate > 60; Glucose Random 100 mg/dL (60-115); Potassium 3.9 mmol/L (3.3-5.1); Sodium 142 mmol/L (135-145); Total Protein 6.5 g/dL (6.5-8.0)
[2024-03-12 13:35] LABS: HCG Quantitative 4 mIU/mL
[2024-03-12 13:56] VITALS: BP 125/76; PULSE 54; RESP 14; TEMP 36.5; O2SAT 97
[2024-03-12 16:19] VITALS: BP 167/85; PULSE 66; RESP 18; TEMP 36.6; O2SAT 99
[2024-03-12 17:51] VITALS: BP 147/78; PULSE 64; RESP 15; TEMP 36.6; O2SAT 94
[2024-03-12 18:48] VITALS: BP 147/78; PULSE 64; RESP 15; TEMP 36.6; O2SAT 94
== END 2024-03-12 18:48 | disposition home or self-care (01) ==
PROVIDERS: Registered Nurse Emergency; Emergency Provider Emergency Medicine; PCP Family Medicine
DX: G43.909 Migraine, unspecified, not intractable, without status migrainosus (principal); I10 Essential (primary) hypertension; M54.2 Cervicalgia
CPT/HCPCS: 36415; 70450; 72125; 80053; 83735; 84702; 85025; 96361; 96374; 96375; 96376; 99284; J1170; J1790; J2919

== ENCOUNTER 2024-03-14 05:20 | Emergency (ER) | payer MEDICARE, SELFPAY ==
[2024-03-14 05:26] VITALS: BP 172/103; PULSE 84; RESP 16; TEMP 36.7; O2SAT 97; BMI 26.1
--- OUTSIDE RECORDS SUMMARY | 2024-03-14 05:43 | XMS_ITS | Continuity of Care Document ---
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
--- NOTE | 2024-03-14 05:49 | PC.NURSE ---
on arrival, pt was shaking, and her bilat lower leg and feet were swollen.
[2024-03-14 06:18] LABS: Basophils Percent Auto 0.5 % (0-2); Eosinophils Absolute Auto 0.1 X10*3/uL (0.0-0.4); Hematocrit 37.8 % (37.0-47.0); Hemoglobin 12.9 g/dl (12.0-16.0); Imm Gran Abs Auto 0.01 X10*3/uL (0.00-0.03); Imm Gran Pct Auto 0.2 % (0.0-0.4); Lymphocytes Absolute Auto 2.9 X10*3/uL (1.2-4.9); Lymphocytes Percent Auto 48.7 % (20-40); MANUAL DIFF FLAG NO; Mean Corpuscular HGB Conc 34.1 g/dl (31.0-35.0); Mean Corpuscular Hemoglobin 29.9 pg (27.0-33.0); Mean Corpuscular Volume 87.7 fL (80.0-98.0); Mean Platelet Volume 10.1 fL (9.4-12.3); Monocytes Absolute Auto 0.7 X10*3/uL (0.1-1.2); Monocytes Percent Auto 11.5 % (2-11); Neutrophils Absolute Auto 2.3 x10*3/uL (2.0-8.3); Neutrophils Percent Auto 38.1 % (45-73); Platelet Count 213 X10*3/uL (160-400); Red Blood Count 4.31 X10*6/uL (4.20-5.50); Red Cell Distribution Width 13.6 % (11.0-16.0)
[2024-03-14 06:31] LABS: Alanine Aminotransferase 8 U/L (0-31); Albumin Level 3.7 g/dL (3.5-5.0); Alkaline Phosphatase 48 U/L (39-117); Anion Gap 13 (12-20); Aspartate Amino Transferase 13 U/L (5-31); Bilirubin Total 0.3 mg/dL (0.0-1.0); Blood Urea Nitrogen 7 mg/dL (9-16); Calcium 8.9 mg/dL (8.4-10.2); Carbon Dioxide 25 mmol/L (22-29); Chloride 110 mmol/L (96-108); Creatinine Clr Calc Pharmacy 74.5; Estimated Glomerular Filt Rate > 60; Glucose Random 94 mg/dL (60-115); Potassium 3.6 mmol/L (3.3-5.1); Sodium 144 mmol/L (135-145); Total Protein 5.9 g/dL (6.5-8.0)
[2024-03-14 06:37] LABS: B Type Natriuretic Peptide 20 pg/mL (<100)
--- NOTE | 2024-03-14 06:47 | ED_ITS ---
HPI - General Adult General Chief complaint: General Medical Stated complaint: high blood pressure Time Seen by Provider: 03/14/24 06:46 Source: patient and other ( friend) Mode of arrival: ambulatory Limitations: no limitations History of Present Illness ED Provider: Dr. Zaki Mills HPI narrative: 54-year-old female with a history of depression, bipolar disorder, fibromyalgia, degenerative joint disease, spinal stenosis, gastroparesis who presents emergency department for evaluation of an elevated blood pressure of 172/110. Patient states that she was feeling shaky having headache and feeling unwell. She checked her blood pressure was elevated, this made her concerned so she came to emergency department for evaluation. Patient was seen in the emergency department on 03/12/2024 for for migraine headache and hypertension . She had a complete workup including laboratory evaluation CT scan of the head which was unremarkable. Patient's headache improved with medications given in the emergency department. She was advised to follow-up with her PCP for re- evaluation of her blood pressure. She did see her PCP and was started on propanolol 20 mg once a day. Patient has only taken this dose for 1 day. She did take an extra propanolol prior to coming to the emergency department. Related Data Allergies Allergy/AdvReac Type Severity Reaction Status Date / Time Sulfa (Sulfonamide Allergy Hives Verified 03/14/24 05:29 Antibiotics) codeine AdvReac Anxiety Verified 03/14/24 05:29 diphenhydramine AdvReac Anxiety Verified 03/14/24 05:29 [From Benadryl] hydrocodone AdvReac Anxiety Verified 03/14/24 05:29 morphine AdvReac Anxiety Verified 03/14/24 05:29 prochlorperazine AdvReac Anxiety Verified 03/14/24 05:29 [From Compazine] Review of Systems 2 Review of Systems: Yes all other systems are reviewed and are negative [facility] Past Medical History [facility] Narrative: Social history: She denies tobacco, alcohol and drug use Social History Social History Smoked in Last 30 Days: No Use of substances other than those prescribed or required for medical reasons: No Advance Directives: No Advance Directives Information Provided: Yes Do you have a plan to hurt others: No Plan Patient : No Physical Exam ED Vital Signs: Vital Signs - 24 hr 03/14/24 05:26 Temperature 98.1 F Pulse Rate 84 Respiratory Rate 16 Blood Pressure 172/103 H Pulse Oximetry 97 Oxygen Delivery Method Room Air BMI result Body Mass Index 26.1 vital signs revealed an elevated blood pressure of 172/103 Exam: General: Awake, alert in no distress Head: Normocephalic, atraumatic EENT: PERRL, Lids normal, sclera normal, conjunctiva normal, nose normal , ears normal, throat without erythema or exudates Neck: Supple, no adenopathy Lung: breath sounds symmetric, no wheezing, rales or rhonchi Chest: symmetric movement, nontender Heart: regular rate and rhythm, normal S1, S2 no murmurs or rubs Abdomen: soft, non-tender, nondistended, normal bowel sounds Back: no vertebral tenderness, no CVAT Extremities: no deformities, moves all extremities symmetrically Neuro: Awake, alert, oriented, normal speech, cranial nerves intact, moves all extremities symmetrically Psych: Pleasant, cooperative Medical Decision Making Medical Decision Making MDM Narrative: 54-year-old female with a history of depression, bipolar disorder, fibromyalgia, degenerative joint disease, spinal stenosis, gastroparesis who presents emergency department for evaluation of an elevated blood pressure of 172/110 with symptoms including feeling shaky, having headache and feeling unwell. patient was seen in the emergency department on 03/12/2024 for her headache and elevated blood pressure had a negative workup including blood work and CT scan of the head. Patient did follow-up with her PCP and was started on propanolol which she has only taken for 1 day and she did take 1 dose prior to coming to emergency department. Vital signs did reveal an elevated blood pressure. Physical examination was unremarkable. Differential diagnosis: Includes but is not limited to Primary hypertension, secondary hypertension, anxiety, migraine headaches Course: The patient did have documented elevated blood pressures here in the emergency department, physical examination was unremarkable. the patient's laboratory evaluation was unremarkable. She did have a CT scan of her brain several days prior and I did not think this needed to be repeated. I did discuss primary hypertension with the patient, treatment and management of hypertension. Patient has only been on propanolol for 1 day and I told her that it sometimes takes 2-6 weeks before antihypertensive medication will affect blood pressure. Given her normal exam the patient will be discharged home. She was advised to check her blood pressures on Mondays, Wednesdays and Saturday mornings and write these readings down. She is to follow-up with her PCP in 2 weeks to discuss further management of her blood pressure medications and hypertension. She was given printed and verbal instructions and discharged home. Admission/Observation Consideration of admission/observation: Escalation of care including admission/observation considered ( yes) Lab Data [facility] Lab Attestation statement: I reviewed the patient's lab results. My interpretation patient's laboratory evaluation is as follows: CBC was normal. CMP was normal. BNP was normal. 03/14/24 06:07 03/14/24 06:07 Labs: Lab Results 03/14/24 03/14/24 Range/Units 06:07 06:08 WBC 6.0 (4.8-10.8) X10*3/uL RBC 4.31 (4.20-5.50) X10*6/uL Hgb 12.9 (12.0-16.0) g/dl Hct 37.8 (37.0-47.0) % MCV 87.7 (80.0-98.0) fL MCH 29.9 (27.0-33.0) pg MCHC 34.1 (31.0-35.0) g/dl RDW 13.6 (11.0-16.0) % Plt Count 213 (160-400) X10*3/uL MPV 10.1 (9.4-12.3) fL Immature Gran % (Auto) 0.2 (0.0-0.4) % Neut % (Auto) 38.1 L (45-73) % Lymph % (Auto) 48.7 H (20-40) % Cannon % (Auto) 11.5 H (2-11) % Eos % (Auto) 1.0 (0-4) % Baso % (Auto) 0.5 (0-2) % Lymph # (Auto) 2.9 (1.2-4.9) X10*3/uL Cannon # (Auto) 0.7 (0.1-1.2) X10*3/uL Eos # (Auto) 0.1 (0.0-0.4) X10*3/uL Baso # (Auto) 0.0 (0.0-0.2) X10*3/uL Abs Immat Gran (auto) 0.01 (0.00-0.03) X10*3/uL Absolute Neuts (auto) 2.3 (2.0-8.3) x10*3/uL Absolute Nucleated RBC 0.000 (0.0-0.012) X10*3/uL Nucleated RBC % (auto) 0.0 (0.0-0.2) /100WBC Sodium 144 (135-145) mmol/L Potassium 3.6 (3.3-5.1) mmol/L Chloride 110 H (96-108) mmol/L Carbon Dioxide 25 (22-29) mmol/L Anion Gap 13 (12-20) BUN 7 L (9-16) mg/dL Creatinine 0.75 (0.5-1.4) mg/dL Estim Creat Clear Calc 74.5 Estimated GFR > 60 Random Glucose 94 (60-115) mg/dL Calcium 8.9 D (8.4-10.2) mg/dL Total Bilirubin 0.3 (0.0-1.0) mg/dL AST 13 (5-31) U/L ALT 8 (0-31) U/L Alkaline Phosphatase 48 (39-117) U/L B-Natriuretic Peptide 20 (<100) pg/mL Total Protein 5.9 L (6.5-8.0) g/dL Albumin 3.7 (3.5-5.0) g/dL Independent Historian Clinical information obtained from an independent historian. History obtained from or confirmed by: Other ( friend who is in the healthcare profession) Chronic Conditions Patient?s care impacted by: Other ( bipolar disorder, fibromyalgia) Discharge Plan Discharge Clinical Impression: Primary hypertension Patient Disposition: Home, Self-Care Additional Instructions: Your complete blood count and comprehensive metabolic panel today was normal which is reassuring. Your blood pressures were high but your doctor just started you on a blood pressure medication. Continue taking this medication as prescribed by your provider. High blood pressure instructions: The reason to check your blood pressure at home is to give your doctor an idea of what your blood pressure does when you are not in the doctor's office. Take your blood pressure in the mornings, Mondays , Wednesdays and Fridays and then write down these readings to discuss them with your doctor at your next visit. Do this until your next appointment. If your doctor thinks that your blood pressures are too high then they will either increase your high blood pressure medication until it gets the maximum dose or start you on a 2nd high blood pressure medication. If your doctor changes your blood pressure medications it will take anywhere from 2-6 week before these medications work to reduce your blood pressure. Follow-up with your doctor to discuss your blood pressure readings in 2 weeks Please return to the emergency department if your symptoms get worse or if you develop any new symptoms that are concerning to you. Interventions: ED Discharge Assessment Last Done: 03/14/24 09:10 Discharge Date/Time: 03/14/24 09:10 Print Language: Namibian
--- NOTE | 2024-03-14 06:54 | PC.NURSE ---
report given to Georgette GALO
[2024-03-14 08:06] VITALS: BP 159/93; PULSE 77; RESP 20; TEMP 37.1
[2024-03-14 09:10] VITALS: BP 160/89; PULSE 65; RESP 16; TEMP -17.7; TEMP 0
== END 2024-03-14 09:10 | disposition home or self-care (01) ==
PROVIDERS: Emergency Provider Emergency Medicine Emergency Medical Services; PCP Family Medicine
DX: I10 Essential (primary) hypertension (principal); R51.9 Headache, unspecified
CPT/HCPCS: 36415; 80053; 83880; 85025; 99283; 99284